=== PATIENT | female | born 1985 | race Caucasian/White ===

== ENCOUNTER 2016-06-07 10:36 | Emergency (ER) | payer MEDICAID ==
[~2016-06-07] VITALS: Ht 160 cm; Wt 60.0 kg
[~2016-06-07 10:36] MED LIST: PERM120L5 TP
[2016-06-07 10:45] VITALS: Ht 160 cm; Wt 60.0 kg
[2016-06-07] MEDS ORDERED: ACETAMINOPHEN 500 MG TAB PO STA (11:46)
--- NOTE | 2016-06-07 11:48 | ERD ---
ER Documentation Chief Complaint Date/Time DATE: 06/07/16 TIME: 11:46 Chief Complaint VAG BLEEDING 6WKS HPI This is a 30-year-old female who presents to the emergency department today complaining of spotting when she wiped this morning. Patient states she has some crampy lower abdominal pain. States that she has some back pain. States she is 6 weeks . Denies any fevers or chills, dysuria. She has not taken any medication for the pain. Denies any nausea or vomiting ROS All systems reviewed and are negative except as per history of present illness. Medications Home Meds Active Scripts Acetaminophen* (Tylophen*) 500 Mg Capsule, 1 CAP PO Q6H Y for PAIN AND OR ELEVATED TEMP, #30 CAP Prov:SHYAM MONTIEL PA-C 06/07/16 Permethrin (Permethrin) 118 Ml Liquid, 118 ML TP QHS, #2 EA Prov:TRISTAN LOPES 09/28/15 Reported Medications [None] No Conflict Check 07/21/10 Allergies Allergies: Coded Allergies: No Known Drug Allergy (Verified Allergy, Unknown, 09/28/15) PMhx/Soc History of Surgery: Yes () Anesthesia Reaction: No Hx Neurological Disorder: No Hx Respiratory Disorders: No Hx Cardiac Disorders: No Hx Psychiatric Problems: No Hx Miscellaneous Medical Probl: No Hx Alcohol Use: No Hx Substance Use: No Hx Tobacco Use: No Physical Exam Vitals Vital Signs Date Time Temp Pulse Resp B/P Pulse Ox O2 Delivery O2 Flow Rate FiO2 06/07/16 10:45 98.3 88 20 110/68 98 Physical Exam Const: No acute distress Head: Atraumatic Eyes: Normal Conjunctiva ENT: Normal External Ears, Nose and Mouth. Neck: Full range of motion..~ No meningismus. Resp: Clear to auscultation bilaterally Cardio: Regular rate and rhythm, no murmurs Abd: Soft, suprapubic tenderness non distended. Normal bowel sounds. No right lower quadrant pain. No left lower quadrant pain. Skin: No petechiae or rashes Back: Bilateral paraspinal tenderness. No midline tenderness. Neur: Awake and alert Psych: Normal Mood and Affect Result Diagram: 06/07/16 1256 Results 24 hrs Laboratory Tests Test 06/07/16 12:40 06/07/16 12:56 Urine Color LT. YELLOW Urine Clarity CLOUDY Urine pH 8.0 Urine Specific [place] 1.015 Urine Ketones NEGATIVE Urine Nitrite NEGATIVE Urine Bilirubin NEGATIVE Urine Urobilinogen 0.2 E.U./dL Urine Leukocyte Esterase NEGATIVE Urine Microscopic RBC 0-2/HPF Urine Microscopic WBC 0-2/HPF Urine Epithelial Cells FEW Urine Amorphous Phosphates MANY Urine Bacteria MODERATE Urine Hemoglobin 2+ Urine Glucose NEGATIVE% Urine Total Protein NEGATIVE White Blood Count 10.910^3/ul Red Blood Count 4.1210^6/ul Hemoglobin 13.3g/dl Hematocrit 38.0% Mean Corpuscular Volume 92.2fl Mean Corpuscular Hemoglobin 32.3pg Mean Corpuscular Hemoglobin Concent 35.0g/dl Red Cell Distribution Width 12.2% Platelet Count 10544^3/UL Mean Platelet Volume 11.8fl Neutrophils % 69.0% Lymphocytes % 23.1% Monocytes % 6.9% Eosinophils % 0.4% Basophils % 0.3% Nucleated Red Blood Cells % 0.0/100WBC Neutrophils # 7.510^3/ul Lymphocytes # 2.510^3/ul Monocytes # 0.810^3/ul Eosinophils # 0.010^3/ul Basophils # 0.010^3/ul Nucleated Red Blood Cells # 0.010^3/ul Beta HCG, Quantitative 30281.0mIU/ml Current Medications Medications (Trade) Dose Ordered Sig/Rei Route PRN Reason Start Time Stop Time Status Last Admin Dose Admin Acetaminophen (Tylenol Tab) 500 mg ONCE STAT PO 06/07/16 11:46 06/07/16 11:47 DC 06/07/16 12:16 IAGNOSTIC IMAGING REPORT Patient: GULSHAN LOUISE : 1985 Age: 30 Sex: F MR #: [id number] DOS: 06/07/16 1229 Ordering MD: SHYAM MONTIEL PA-C Location: [facility] Room/Bed: PROCEDURE: US OB. CLINICAL INDICATION: Vaginal bleeding TECHNIQUE: Transabdominal and transvaginal views of the pelvis are available for review. COMPARISON: No prior studies are available for comparison. FINDINGS: There is a single intrauterine gestation with the crown-rump length measuring 0.9 cm, corresponding to a gestational age of 6 weeks and 6 days. The heart rate is noted at 114 bpm. The ovaries are normal in size and echogenicity. Normal Doppler flow is identified in both ovaries. The right ovary measures 2.1 x 1.5 x 2.6 cm. The left ovary measures 2.7 x 1.4 x 1.6 cm. There is a 1.1 cm left paraovarian cyst. There is no free fluid. RPTAT: AA IMPRESSION: Single live intrauterine with an estimated gestational age of 6 weeks and 6 days, based on ultrasound measurements. ROSSANA based on ultrasound measurements is 01/25/17. 1.1 cm left paraovarian simple cyst. .Herminio Lovelace MD, MD Date Time Electronically viewed and signed by .Herminio Lovelace MD, MD on 06/07/2016 14: 26 .S/ CC: SHYAM MONTIEL PA-C Procedures/[facility] This a 30-year-old female who presents to the emergency department today complaining of spotting of blood when she wiped this morning. Patient indicated she was a proximal 6 weeks . I did obtain a urine test that was positive. Given this I did obtain a complete OB workup. Laboratory work shows a very mildly elevated white blood cell count. She is not anemic. Platelets are within normal limits. UA is negative for infection Rh status A + Positive Beta quant hCG 49889.0 Ultrasound shows a single live intrauterine with an estimated gestational age of 6 weeks and 6 days based on ultrasound measurements. ROSSANA is 01/25/2017. heart rate is 114 bpm. There is no free fluid. There is a 1.1 cm left paraovarian cyst. There is normal Doppler flow to both ovaries. Low suspicion for ovarian torsion, tubal or an abscess, ectopic Patient symptoms at this time is consistent with vaginal bleeding in early I explained to the patient that this may be an early normal , early failed . She is instructed to get a repeat beta quant in 48 hours. I have explained to the patient she may continue to have vaginal bleeding Patient was given Tylenol here in the emergency department. She will be given a prescription for Tylenol for home. At this time the patient is stable for discharge and outpatient management. Patient should follow up with their PCP in the next 1-2 days. They may return to the emergency department sooner for any persistent or worsening of symptoms. Patient understood and agreed with the plan. Departure Diagnosis: Primary Impression: Vaginal bleeding in patient at less than 20 weeks gestation Condition: SHYAM Monet PA-C Jun 07, 2016 11:48
[2016-06-07 13:02] LABS: ADD UMIC YES; URINE BILIRUBIN (Dip) NEGATIVE (NEGATIVE); URINE BLOOD (Dip) 2+ (NEGATIVE); URINE GLUCOSE (Dip) NEGATIVE (NEGATIVE); URINE KETONES (Dip) NEGATIVE (NEGATIVE); URINE LEUKOCYTE ESTERASE (Dip) NEGATIVE (NEGATIVE); URINE NITRITE (Dip) NEGATIVE (NEGATIVE); URINE TOTAL PROTEIN (Dip) NEGATIVE (NEGATIVE); URINE UROBILINOGEN (Dip) 0.2 E.U./dL (0.1-1.0)
[2016-06-07 13:05] LABS: ADD SCAN DIFF NO
[2016-06-07 13:14] LABS: BASOPHILS % 0.3 % (0.0-2.0); EOSINOPHILS % 0.4 % (0.0-7.0); HEMOGLOBIN 13.3 g/dl (12.0-16.0); LYMPHOCYTES # 2.5 10^3/ul (0.8-2.9); LYMPHOCYTES % 23.1 % (15.0-51.0); MEAN CORPUSCULAR HEMOGLOBIN 32.3 pg (29.0-33.0); MEAN CORPUSCULAR VOLUME 92.2 fl (82.0-101.0); MEAN PLATELET VOLUME 11.8 fl (7.4-10.4); MONOCYTE # 0.8 10^3/ul (0.3-0.9); MONOCYTES % 6.9 % (0.0-11.0); NEUTROPHIL # 7.5 10^3/ul (1.6-7.5); PLATELET COUNT 166 10^3/UL (140-415); RED BLOOD COUNT 4.12 10^6/ul (4.20-5.40); RED CELL DISTRIBUTION WIDTH 12.2 % (11.5-14.5); WHITE BLOOD COUNT 10.9 10^3/ul (4.8-10.8)
[2016-06-07 13:19] LABS: URINE RBCS 0-2 /HPF (0)
[2016-06-07 13:20] LABS: BACTERIA,URINE MODERATE; URINE COLOR LT. YELLOW (YELLOW)
--- NOTE | 2016-06-07 14:26 | RADRPT ---
PROCEDURE: US OB. CLINICAL INDICATION: Vaginal bleeding TECHNIQUE: Transabdominal and transvaginal views of the pelvis are available for review. COMPARISON: No prior studies are available for comparison. FINDINGS: There is a single intrauterine gestation with the crown-rump length measuring 0.9 cm, corresponding to a gestational age of 6 weeks and 6 days. The heart rate is noted at 114 bpm. The ovaries are normal in size and echogenicity. Normal Doppler flow is identified in both ovaries. The right ovary measures 2.1 x 1.5 x 2.6 cm. The left ovary measures 2.7 x 1.4 x 1.6 cm. There is a 1.1 cm left paraovarian cyst. There is no free fluid. RPTAT: AA IMPRESSION: Single live intrauterine with an estimated gestational age of 6 weeks and 6 days, based on ultrasound measurements. ROSSANA based on ultrasound measurements is 01/25/17. 1.1 cm left paraovarian simple cyst. .Herminio Lovelace MD, MD Date Time Electronically viewed and signed by .Herminio Lovelace MD, on 06/07/2016 14:26 .S/
[2016-06-07] MEDS ORDERED: ACET500C5 PO (14:35)
[2016-06-07 14:45] VITALS: BP 108/69; PULSE 72; RESP 18; TEMP 98.8
== END 2016-06-07 14:45 | disposition home or self-care (01) ==
LOC: FTE 10:36
DX: O20.9 Hemorrhage in early pregnancy, unspecified (principal); Z3A.01 Less than 8 weeks gestation of pregnancy
CPT/HCPCS: 36415; 76801; 76817; 81001; 84702; 85025; 86900; 86901; Z7502; Z7610; 81003

== ENCOUNTER 2016-06-20 12:36 | Emergency (ER) | payer MEDICAID ==
[~2016-06-20] VITALS: Ht 152.4 cm; Wt 60.0 kg
[~2016-06-20 12:36] MED LIST changes: +ACET500C5 PO
[2016-06-20 12:49] VITALS: Ht 152.4 cm; Wt 60.0 kg
[2016-06-20 14:57] LABS: ADD SCAN DIFF NO
[2016-06-20] MEDS ORDERED: ACETAMINOPHEN 325 MG TAB PO ONE (15:00)
[2016-06-20 15:07] LABS: BASOPHILS % 0.1 % (0.0-2.0); EOSINOPHILS % 0.4 % (0.0-7.0); HEMATOCRIT 36.8 % (37.0-47.0); HEMOGLOBIN 13.1 g/dl (12.0-16.0); LYMPHOCYTES # 2.2 10^3/ul (0.8-2.9); LYMPHOCYTES % 20.7 % (15.0-51.0); MEAN CORPUSCULAR HEMOGLOBIN 32.5 pg (29.0-33.0); MEAN CORPUSCULAR HGB CONC 35.6 g/dl (32.0-37.0); MEAN CORPUSCULAR VOLUME 91.3 fl (82.0-101.0); MEAN PLATELET VOLUME 11.2 fl (7.4-10.4); MONOCYTE # 0.7 10^3/ul (0.3-0.9); MONOCYTES % 6.5 % (0.0-11.0); NEUTROPHIL # 7.5 10^3/ul (1.6-7.5); PLATELET COUNT 179 10^3/UL (140-415); RED BLOOD COUNT 4.03 10^6/ul (4.20-5.40); WHITE BLOOD COUNT 10.4 10^3/ul (4.8-10.8)
[2016-06-20 15:14] LABS: ADD UMIC YES; URINE BILIRUBIN (Dip) NEGATIVE (NEGATIVE); URINE BLOOD (Dip) 2+ (NEGATIVE); URINE COLOR YELLOW (YELLOW); URINE GLUCOSE (Dip) NEGATIVE (NEGATIVE); URINE KETONES (Dip) NEGATIVE (NEGATIVE); URINE LEUKOCYTE ESTERASE (Dip) NEGATIVE (NEGATIVE); URINE NITRITE (Dip) NEGATIVE (NEGATIVE); URINE TOTAL PROTEIN (Dip) NEGATIVE (NEGATIVE); URINE UROBILINOGEN (Dip) 0.2 E.U./dL (0.1-1.0)
--- NOTE | 2016-06-20 15:19 | RADRPT ---
PROCEDURE: US OB. CLINICAL INDICATION: Vaginal bleeding TECHNIQUE: Transabdominal views of the pelvis are available for review. COMPARISON: 06/07/16 FINDINGS: There is a single intrauterine gestation with the crown-rump length measuring 1.8 cm and the gestat ional sac measures 3.9 cm, corresponding to a gestational age of 8 weeks and 6 days. The heart rate is noted at 165 bpm. The ovaries are not visualized. There is no free fluid. RPTAT: AA IMPRESSION: Single live intrauterine with an estimated gestational age of 8 weeks and 6 days, based on ultrasound measurements. ROSSANA based on ultrasound measurements is 01/24/17. .Herminio Lovelace MD, MD Date Time Electronically viewed and signed by .Herminio Lovelace MD, on 06/20/2016 15:18 .S/
[2016-06-20 15:26] LABS: BACTERIA,URINE FEW; MUCUS,URINE MODERATE; SQUAMOUS EPITHELIAL CELL,UR MODERATE
--- NOTE | 2016-06-20 16:21 | ERD ---
ER Documentation Chief Complaint Date/Time DATE: 06/20/16 TIME: 16:20 Chief Complaint VAGINAL BLEEDING X 1 DAY, 7 WEEKS , BACK PAIN HPI This 30-year-old female is approximately 7 weeks by dates. She says some vaginal bleeding suggested with possible small clots. She denies any current lower abdominal pain. She has a dysuria, fevers or vomiting. ROS All systems reviewed and are negative except as per history of present illness. Medications Home Meds Active Scripts Acetaminophen* (Tylophen*) 500 Mg Capsule, 1 CAP PO Q6H Y for PAIN AND OR ELEVATED TEMP, #30 CAP Prov:SHYAM MONTIEL PA-C 06/07/16 Permethrin (Permethrin) 118 Ml Liquid, 118 ML TP QHS, #2 EA Prov:TRISTAN LOPES 09/28/15 Reported Medications [None] No Conflict Check 07/21/10 Allergies Allergies: Coded Allergies: No Known Drug Allergy (Verified Allergy, Unknown, 09/28/15) PMhx/Soc History of Surgery: Yes () Anesthesia Reaction: No Hx Neurological Disorder: No Hx Respiratory Disorders: No Hx Cardiac Disorders: No Hx Psychiatric Problems: No Hx Miscellaneous Medical Probl: No Hx Alcohol Use: No Hx Substance Use: No Hx Tobacco Use: No Physical Exam Vitals Vital Signs Date Time Temp Pulse Resp B/P Pulse Ox O2 Delivery O2 Flow Rate FiO2 06/20/16 12:49 98.5 87 18 107/65 97 Physical Exam Const: [] Head: Atraumatic Eyes: Normal Conjunctiva ENT: Normal External Ears, Nose and Mouth. Neck: Full range of motion..~ No meningismus. Resp: Clear to auscultation bilaterally Cardio: Regular rate and rhythm, no murmurs Abd: Soft, non tender, non distended. Normal bowel sounds Skin: No petechiae or rashes Back: No midline or flank tenderness Ext: No cyanosis, or edema Neur: Awake and alert Psych: Normal Mood and Affect Result Diagram: 06/20/16 1450 Results 24 hrs Laboratory Tests Test 06/20/16 14:44 06/20/16 14:50 Urine Color YELLOW Urine Clarity CLEAR Urine pH 6.0 Urine Specific [place] 1.020 Urine Ketones NEGATIVE Urine Nitrite NEGATIVE Urine Bilirubin NEGATIVE Urine Urobilinogen 0.2 E.U./dL Urine Leukocyte Esterase NEGATIVE Urine Microscopic RBC 2-5/HPF Urine Microscopic WBC 5-10/HPF Urine Squamous Epithelial Cells MODERATE Urine Bacteria FEW Urine Mucus MODERATE Urine Hemoglobin 2+ Urine Glucose NEGATIVE% Urine Total Protein NEGATIVE White Blood Count 10.410^3/ul Red Blood Count 4.0310^6/ul Hemoglobin 13.1g/dl Hematocrit 36.8% Mean Corpuscular Volume 91.3fl Mean Corpuscular Hemoglobin 32.5pg Mean Corpuscular Hemoglobin Concent 35.6g/dl Red Cell Distribution Width 12.0% Platelet Count 97066^3/UL Mean Platelet Volume 11.2fl Neutrophils % 72.0% Lymphocytes % 20.7% Monocytes % 6.5% Eosinophils % 0.4% Basophils % 0.1% Nucleated Red Blood Cells % 0.0/100WBC Neutrophils # 7.510^3/ul Lymphocytes # 2.210^3/ul Monocytes # 0.710^3/ul Eosinophils # 0.010^3/ul Basophils # 0.010^3/ul Nucleated Red Blood Cells # 0.010^3/ul Beta HCG, Quantitative 611786.0mIU/ml Current Medications Medications (Trade) Dose Ordered Sig/Rei Route PRN Reason Start Time Stop Time Status Last Admin Dose Admin Acetaminophen (Tylenol Tab) 650 mg ONCE ONCE PO 06/20/16 15:00 06/20/16 15:01 DC 06/20/16 15:26 Procedures/MDM Patient is Rh+. CBC is normal. Quantitative hCG is 187,000. Pelvic ultrasound shows a live intrauterine approximately 8 weeks 6 days. There is no other acute findings noted. Patient presents with vaginal bleeding first trimester of uncertain etiology. There is no evidence to suggest ectopic , acute abdomen, UTI or additional complications of . She will discharged home with further observation instruction to follow-up with OB or primary doctor this week. She will return for worsening pain, bleeding, fevers, new worsening symptoms. The patient was stable with no new complaints during the ER course. Clinically, there is no current evidence to suggest meningitis, sepsis, acute abdomen, pneumonia, acute coronary syndrome, pulmonary embolism, or any other emergent condition appearing to require further evaluation or hospitalization. The patient should certainly return for any new or worsening symptoms per the aftercare instructions. They should otherwise follow-up with her primary care doctor for reevaluation this week. Departure Diagnosis: Primary Impression: Vaginal bleeding in patient at less than 20 weeks ges... Condition: Stable Patient Instructions: Bleeding During Early Additional Instructions: Examines normal hoy. Cheque otro vez con taylor doctor primario en el proximo hutton or regresa para mas o nueva simptomas. CHICHI ROCA MD Jun 20, 2016 16:21
[2016-06-20 16:32] VITALS: BP 114/69; PULSE 84; RESP 16; TEMP 98
== END 2016-06-20 16:33 | disposition home or self-care (01) ==
LOC: FTE 12:36
DX: O20.9 Hemorrhage in early pregnancy, unspecified (principal); Z3A.08 8 weeks gestation of pregnancy
CPT/HCPCS: 36415; 76801; 81001; 81003; 84702; 85025; 86900; 86901; Z7502; Z7610

== ENCOUNTER 2016-10-07 20:17 | Emergency (ER) | payer MEDICAID ==
[~2016-10-07] VITALS: Ht 157.5 cm; Wt 65.0 kg
[2016-10-07 20:18] VITALS: Ht 157.5 cm; Wt 65.0 kg
[2016-10-07 21:59] VITALS: BP 112/71; PULSE 72; RESP 18; TEMP 98.8
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
--- NOTE | 2016-10-07 22:26 | RADRPT ---
PROCEDURE: Obstetrical ultrasound, limited. CLINICAL INDICATION: Pelvic pain. TECHNIQUE: Multiple sonographic images of the pelvis were obtained using transabdominal technique . Images were obtained with morris scale and color Doppler. The images were reviewed on a PACS works tation. COMPARISON: 06/20/2016. FINDINGS: There is a single living intrauterine gestation with the fetus in a breech presentation. hear t tones of 138 beats per minute are identified. The placenta is anterior in location, grade 0. The re is normal amniotic fluid volume with the maximum vertical pocket measuring 5.3 cm. The cervix is open measuring 0.8 cm. There is no evidence of placenta previa or abruption. Measurements were made in order to determine age. The results are as follows: BPD =5.70 cm HC =20.74 cm AC =19.66 cm FL =4.14 cm. Estimated gestational age of approximately 23 weeks and 4 days. The estimated date of delivery is 01/30/2017. The EFW = 631 +/- 95 grams. Estimated weight percentage equals 21.6%. IMPRESSION: Single viable intrauterine gestation of approximately 23 weeks and 4 days, with an ultrasound ROSSANA of 01/30/2017. Open cervix measuring 0.8 cm. .Alejandro Egan MD, MD Date Time Electronically viewed and signed by .Alejandro Egan MD, MD on 10/07/2016 22:26 .T/
[2016-10-07] MEDS ORDERED: FERR134T PO (23:06)
[2016-10-07] MEDS ORDERED: FOLI0.8C PO (23:06)
[2016-10-07] MEDS ORDERED: CALC600T5 PO (23:06)
[2016-10-07] MEDS ORDERED: PRENAT PO (23:06)
== END 2016-10-07 22:00 | disposition home or self-care (01) ==
LOC: E/R 20:17
DX: O9A.212 Injury, poisoning and certain other consequences of external causes complicating pregnancy, second trimester (principal); S39.81XA Other specified injuries of abdomen, initial encounter; Y08.89XA Assault by other specified means, initial encounter; Z3A.23 23 weeks gestation of pregnancy
CPT/HCPCS: 76805

== ENCOUNTER 2016-10-07 22:07 | Inpatient (IN) | payer MEDICAID ==
[~2016-10-07] VITALS: Ht 142.2 cm; Wt 59.5 kg
[2016-10-07 22:51] VITALS: Ht 142.2 cm; Wt 59.5 kg
[2016-10-07 22:52] VITALS: BP 116/65; PULSE 86; RESP 18
[2016-10-07] MEDS ORDERED: CALC600T5 PO (23:06)
[2016-10-07] MEDS ORDERED: FERR134T PO (23:06)
[2016-10-07] MEDS ORDERED: PRENAT PO (23:06)
[2016-10-07] MEDS ORDERED: FOLI0.8C PO (23:06)
[2016-10-08 00:50] LABS: BASOPHILS % 0.1 % (0.0-2.0); EOSINOPHILS % 0.2 % (0.0-7.0); HEMATOCRIT 32.2 % (37.0-47.0); HEMOGLOBIN 11.8 g/dl (12.0-16.0); LYMPHOCYTES # 1.8 10^3/ul (0.8-2.9); LYMPHOCYTES % 14.9 % (15.0-51.0); MEAN CORPUSCULAR HEMOGLOBIN 33.2 pg (29.0-33.0); MEAN CORPUSCULAR HGB CONC 36.6 g/dl (32.0-37.0); MEAN CORPUSCULAR VOLUME 90.7 fl (82.0-101.0); MEAN PLATELET VOLUME 11.4 fl (7.4-10.4); MONOCYTE # 0.6 10^3/ul (0.3-0.9); MONOCYTES % 4.6 % (0.0-11.0); NEUTROPHIL # 9.8 10^3/ul (1.6-7.5); NEUTROPHILS % 79.7 % (39.0-77.0); PLATELET COUNT 146 10^3/UL (140-415); RED BLOOD COUNT 3.55 10^6/ul (4.20-5.40); RED CELL DISTRIBUTION WIDTH 12.2 % (11.5-14.5); WHITE BLOOD COUNT 12.2 10^3/ul (4.8-10.8)
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
[2016-10-08] MEDS ORDERED: AL HYDROX/MG HYDROX/SIMETH 30 ML CUP PO PRN (01:30)
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
[2016-10-08] MEDS: BETAMET NA PHOS/AC(6 MG/ML) 5ML INJ IM SCH (03:15)
[2016-10-08 03:46] LABS: ADD UMIC NO; UR ASCORBIC ACID NEGATIVE (NEGATIVE); UR BILIRUBIN (Dip) NEGATIVE (NEGATIVE); UR BLOOD (Dip) NEGATIVE (NEGATIVE); UR CLARITY CLEAR (CLEAR); UR COLOR YELLOW (YELLOW); UR GLUCOSE (Dip) NEGATIVE (NEGATIVE); UR KETONES (Dip) 1+ mg/dL (NEGATIVE); UR LEUKOCYTE ESTERASE (Dip) NEGATIVE Leu/ul (NEGATIVE); UR NITRITE (Dip) NEGATIVE (NEGATIVE); UR SPECIFIC GRAVITY (Dip) 1.018 (1.003-1.030); UR TOTAL PROTEIN (Dip) NEGATIVE (NEGATIVE); UR UROBILINOGEN (Dip) NEGATIVE (NEGATIVE)
[2016-10-08] MEDS: FOLIC ACID 0.4 MG TAB PO SCH (08:57)
[2016-10-08] MEDS: FERROUS SULFATE (EC) 325 MG TAB PO SCH (08:57)
[2016-10-08] MEDS: CALCIUM/VITAMIN D (250/125) TAB PO SCH (08:57)
[2016-10-08] MEDS: PRENATAL VITAMIN PO SCH (08:57)
--- NOTE | 2016-10-08 10:13 | RADRPT ---
PROCEDURE: Limited obstetric ultrasound CLINICAL INDICATION: Pain TECHNIQUE: Multiple transverse and longitudinal grayscale images of the pelvis were obtained sena sabdominally and transvaginally.. COMPARISON: 10/07/2016 FINDINGS: The cervix has a length of 0.7 cm. There is evidence of funneling with the internal os dilated to 1. 4 cm. There is layering debris between the internal os and external os. There is a single viable intrauterine gestation. Cardiac activity is present with 156 beats per min saxman. There is a vertex presentation. The placenta is anterior. There is no evidence for an abruption or placenta previa. RPTAT: AA IMPRESSION: Cervix length measures 0.7 cm. Evidence of funneling with dilatation of the internal os. Echogenic debris noted between the internal and external os. .Herminio Lovelaec MD, MD Date Time Electronically viewed and signed by .Herminio Lovelace MD, MD on 10/08/2016 10:12 .S/
[2016-10-08 10:20] LABS: BARBITURATES NEGATIVE (NEGATIVE); BENZODIAZEPINES NEGATIVE (NEGATIVE); CANNABINOIDS NEGATIVE (NEGATIVE); COCAINE NEGATIVE (NEGATIVE); OPIATES NEGATIVE (NEGATIVE)
[2016-10-08] MEDS: ACETAMINOPHEN 325 MG TAB PO PRN (14:04)
[2016-10-08] MEDS: PROGESTERONE 100 MG CAP VAG SCH (21:19)
[2016-10-09] MEDS: BETAMET NA PHOS/AC(6 MG/ML) 5ML INJ IM SCH (03:22)
[2016-10-09] MEDS: PRENATAL VITAMIN PO SCH (08:34)
[2016-10-09] MEDS: FERROUS SULFATE (EC) 325 MG TAB PO SCH (08:34)
[2016-10-09] MEDS: FOLIC ACID 0.4 MG TAB PO SCH (08:34)
[2016-10-09] MEDS: CALCIUM/VITAMIN D (250/125) TAB PO SCH (08:34)
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
[2016-10-09] MEDS: PROGESTERONE 100 MG CAP VAG SCH (21:07)
[2016-10-10] MEDS: FOLIC ACID 0.4 MG TAB PO SCH (08:56)
[2016-10-10] MEDS: FERROUS SULFATE (EC) 325 MG TAB PO SCH (08:56)
[2016-10-10] MEDS: PRENATAL VITAMIN PO SCH (08:56)
[2016-10-10] MEDS: CALCIUM/VITAMIN D (250/125) TAB PO SCH (08:56)
--- NOTE | 2016-10-10 13:07 | QN ---
Documentation Comment 24+wks GA with short cervix currently not sal +FM No VB No LOF No CTXs NST reassuring [place] No CTXs --->continue the orders as Per perinatalogist --->close OBservation ANNE VILLEGAS M.D. Oct 10, 2016 13:07
[2016-10-10] MEDS: PROGESTERONE 100 MG CAP VAG SCH (20:52)
[2016-10-10] MEDS ORDERED: DOCUSATE SODIUM 100 MG CAP PO ONE (21:00)
[2016-10-11] MEDS: CALCIUM/VITAMIN D (250/125) TAB PO SCH (09:09)
[2016-10-11] MEDS: FERROUS SULFATE (EC) 325 MG TAB PO SCH (09:09)
[2016-10-11] MEDS: FOLIC ACID 0.4 MG TAB PO SCH (09:09)
[2016-10-11] MEDS: PRENATAL VITAMIN PO SCH (09:10)
[2016-10-11] MEDS: PROGESTERONE 100 MG CAP VAG SCH (20:54)
[2016-10-12] MEDS: FERROUS SULFATE (EC) 325 MG TAB PO SCH (09:01)
[2016-10-12] MEDS: PRENATAL VITAMIN PO SCH (09:02)
[2016-10-12] MEDS: FOLIC ACID 0.4 MG TAB PO SCH (09:02)
[2016-10-12] MEDS: CALCIUM/VITAMIN D (250/125) TAB PO SCH (09:04)
--- NOTE | 2016-10-12 12:40 | QN ---
Documentation Comment 24+wks GA with short cervix currently not sal +FM No VB No LOF No CTXs NST reassuring [place] No CTXs --->continue the orders as Per perinatalogist --->close OBservation ANNE VILLEGAS M.D. Oct 12, 2016 12:40
--- NOTE | 2016-10-12 12:40 | QN ---
Documentation Comment 10/11/16 Late Entry: 24+wks GA with short cervix currently not sal +FM No VB No LOF No CTXs NST reassuring [place] No CTXs --->continue the orders as Per perinatalogist --->close OBservation ANNE VILLEGAS M.D. Oct 12, 2016 12:40
[2016-10-12] MEDS: ACETAMINOPHEN 325 MG TAB PO PRN (17:23)
[2016-10-12] MEDS: PROGESTERONE 100 MG CAP VAG SCH (21:00)
[2016-10-13] MEDS: FERROUS SULFATE (EC) 325 MG TAB PO SCH (09:13)
[2016-10-13] MEDS: CALCIUM/VITAMIN D (250/125) TAB PO SCH (09:14)
[2016-10-13] MEDS: FOLIC ACID 0.4 MG TAB PO SCH (09:14)
[2016-10-13] MEDS: PRENATAL VITAMIN PO SCH (09:14)
--- NOTE | 2016-10-13 12:58 | QN ---
Documentation Comment 24+wks GA with short cervix currently not sal +FM No VB No LOF No CTXs NST reassuring [place] No CTXs --->continue the orders as Per perinatalogist --->close OBservation --->CXL --->ANNE THACKER M.D. Oct 13, 2016 12:58
[2016-10-13 15:22] LABS: ADD UMIC YES; UR ASCORBIC ACID 40 mg/dL (NEGATIVE); UR BACTERIA FEW /HPF (NONE SEEN); UR BILIRUBIN (Dip) NEGATIVE (NEGATIVE); UR BLOOD (Dip) NEGATIVE (NEGATIVE); UR CLARITY SLIGHTLY CLOUDY (CLEAR); UR COLOR YELLOW (YELLOW); UR GLUCOSE (Dip) 1+ mg/dL (NEGATIVE); UR KETONES (Dip) NEGATIVE (NEGATIVE); UR LEUKOCYTE ESTERASE (Dip) 2+ Leu/ul (NEGATIVE); UR NITRITE (Dip) NEGATIVE (NEGATIVE); UR RBC 1 /HPF (0-5); UR SPECIFIC GRAVITY (Dip) 1.011 (1.003-1.030); UR SQUAMOUS EPITHELIAL CELL FEW /HPF (FEW); UR TOTAL PROTEIN (Dip) NEGATIVE (NEGATIVE); UR UROBILINOGEN (Dip) NEGATIVE (NEGATIVE)
--- NOTE | 2016-10-13 16:44 | RADRPT ---
PROCEDURE: Ultrasound OB cervical length CLINICAL INDICATION: Pelvic pain. TECHNIQUE: Sonographic evaluation to assess the cervical length was performed. Transabdominal and transvaginal imaging of the gravid uterus was performed. COMPARISON: Exam dated 10/08/2016. FINDINGS: The cervical length equals approximately 0.4 cm. There is funneling with echogenic debris within th e endocervical canal. IMPRESSION: 1. Cervical length equals 0.4 cm with funneling and echogenic debris within the endocervical canal. RPTAT: HLBP .Memo Villalobos MD, Date Time Electronically viewed and signed by .Memo Villalobos MD, MD on 10/13/2016 16:44 .P/
[2016-10-13] MEDS ORDERED: CEFAZOLIN 2 GM/50 ML (PMX) 50 ML IVPB ONE (20:00)
[2016-10-13] MEDS ORDERED: LACTATED RINGER'S 500 ML IV ONE (20:30)
[2016-10-13] MEDS: PROGESTERONE 100 MG CAP VAG SCH (21:10)
[2016-10-14] MEDS: FERROUS SULFATE (EC) 325 MG TAB PO SCH (08:50)
[2016-10-14] MEDS: FOLIC ACID 0.4 MG TAB PO SCH (08:51)
[2016-10-14] MEDS: PRENATAL VITAMIN PO SCH (08:51)
[2016-10-14] MEDS: CALCIUM/VITAMIN D (250/125) TAB PO SCH (08:51)
--- NOTE | 2016-10-14 11:23 | QN ---
Documentation Comment 24+wks GA with short cervix (0.4mm) +FM No VB No LOF No CTXs NST reassuring [place] No CTXs --->continue the orders as Per perinatalogist --->procardia 10mg q6hr --->venodyne sebastián while in bed ANNE VILLEGAS M.D. Oct 14, 2016 11:23
[2016-10-14] MEDS: NIFEdipine 10 MG CAP PO SCH ×2 (11:59→17:51)
--- NOTE | 2016-10-14 15:11 | RADRPT ---
PROCEDURE: OB ultrasound (limited) CLINICAL INDICATION: Pain, assess fluid volume TECHNIQUE: Limited transabdominal sonographic evaluation of the gravid uterus was performed. COMPARISON: Ultrasound, 10/13/2016 FINDINGS: Single intrauterine gestation is identified in cephalic position. Placenta is anterior without evid ence for abruption or previa. heart rate is 148 bpm. DIANA measures 14.7 cm, within normal baker its. IMPRESSION: 1. Single live intrauterine gestation in cephalic position. 2. DIANA measures 14.7 cm, within normal limits. RPTAT: PP .Shoaib Almonte MD, Date Time Electronically viewed and signed by .Shoaib Almonte MD, on 10/14/2016 15:11 .R/
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
[2016-10-14] MEDS: PROGESTERONE 100 MG CAP VAG SCH (21:22)
[2016-10-14] MEDS: ACETAMINOPHEN 325 MG TAB PO PRN (22:30)
[2016-10-15] MEDS: NIFEdipine 10 MG CAP PO SCH ×5 (00:20→23:54)
[2016-10-15] MEDS: CALCIUM/VITAMIN D (250/125) TAB PO SCH (08:46)
[2016-10-15] MEDS: FOLIC ACID 0.4 MG TAB PO SCH (08:46)
[2016-10-15] MEDS: PRENATAL VITAMIN PO SCH (08:46)
[2016-10-15] MEDS: FERROUS SULFATE (EC) 325 MG TAB PO SCH (08:46)
[2016-10-15] MEDS: PROGESTERONE 100 MG CAP VAG SCH (21:02)
--- NOTE | 2016-10-15 21:48 | QN ---
Documentation Comment 25+wks GA with short cervix (0.4mm) +FM No VB No LOF No CTXs NST reassuring [place] No CTXs --->continue the orders as Per perinatalogist --->jessica lowery while in bed ANNE VILLEGAS M.D. Oct 15, 2016 21:48
[2016-10-16] MEDS: NIFEdipine 10 MG CAP PO SCH ×3 (06:19→17:39)
[2016-10-16] MEDS: CALCIUM/VITAMIN D (250/125) TAB PO SCH (08:49)
[2016-10-16] MEDS: FOLIC ACID 0.4 MG TAB PO SCH (08:49)
[2016-10-16] MEDS: FERROUS SULFATE (EC) 325 MG TAB PO SCH (08:49)
[2016-10-16] MEDS: PRENATAL VITAMIN PO SCH (08:49)
[2016-10-16] MEDS: PROGESTERONE 100 MG CAP VAG SCH (21:19)
[2016-10-17] MEDS: NIFEdipine 10 MG CAP PO SCH ×5 (00:01→23:59)
[2016-10-17] MEDS: CALCIUM/VITAMIN D (250/125) TAB PO SCH (08:52)
[2016-10-17] MEDS: PRENATAL VITAMIN PO SCH (08:52)
[2016-10-17] MEDS: FOLIC ACID 0.4 MG TAB PO SCH (08:52)
[2016-10-17] MEDS: FERROUS SULFATE (EC) 325 MG TAB PO SCH (08:52)
--- NOTE | 2016-10-17 16:07 | QN ---
Documentation Comment 25+wks GA with short cervix (0.4mm) +FM No VB No LOF No CTXs NST reassuring [place] No CTXs --->continue the orders as Per perinatalogist --->jessica lowery while in bed ANNE VILLEGAS M.D. Oct 17, 2016 16:07
--- NOTE | 2016-10-17 16:07 | QN ---
Documentation Comment 25+wks GA with short cervix (0.4mm) +FM No VB No LOF No CTXs NST reassuring [place] No CTXs --->continue the orders as Per perinatalogist --->jessica lowery while in bed ANNE VILLEGAS M.D. Oct 17, 2016 16:07
[2016-10-17] MEDS: PROGESTERONE 100 MG CAP VAG SCH (21:24)
[2016-10-18] MEDS: NIFEdipine 10 MG CAP PO SCH ×3 (06:02→17:53)
[2016-10-18] MEDS: CALCIUM/VITAMIN D (250/125) TAB PO SCH (09:00)
[2016-10-18] MEDS: PRENATAL VITAMIN PO SCH (09:00)
[2016-10-18] MEDS: FOLIC ACID 0.4 MG TAB PO SCH (09:00)
[2016-10-18] MEDS: FERROUS SULFATE (EC) 325 MG TAB PO SCH (09:00)
[2016-10-18] MEDS: PROGESTERONE 100 MG CAP VAG SCH (21:30)
[2016-10-19] MEDS: NIFEdipine 10 MG CAP PO SCH ×4 (00:07→18:12)
[2016-10-19] MEDS: CALCIUM/VITAMIN D (250/125) TAB PO SCH (09:30)
[2016-10-19] MEDS: FERROUS SULFATE (EC) 325 MG TAB PO SCH (09:30)
[2016-10-19] MEDS: PRENATAL VITAMIN PO SCH (09:30)
[2016-10-19] MEDS: FOLIC ACID 0.4 MG TAB PO SCH (09:30)
--- NOTE | 2016-10-19 09:57 | QN ---
Documentation Comment 25+wks GA with short cervix (0.4mm) +FM No VB No LOF No CTXs NST reassuring [place] No CTXs --->continue the orders as Per perinatalogist --->jessica lowery while in bed ANNE VILLEGAS M.D. Oct 19, 2016 09:57
--- NOTE | 2016-10-19 09:57 | QN ---
Documentation Comment Late Entry Note 10/18/16 25+wks GA with short cervix (0.4mm) +FM No VB No LOF No CTXs NST reassuring [place] No CTXs --->continue the orders as Per perinatalogist --->jessica lowery while in bed ANNE VILLEGAS M.D. Oct 19, 2016 09:57
[2016-10-19] MEDS: PROGESTERONE 100 MG CAP VAG SCH (20:58)
[2016-10-20] MEDS: NIFEdipine 10 MG CAP PO SCH ×4 (00:05→17:35)
[2016-10-20] MEDS: FERROUS SULFATE (EC) 325 MG TAB PO SCH (09:00)
[2016-10-20] MEDS: CALCIUM/VITAMIN D (250/125) TAB PO SCH (09:00)
[2016-10-20] MEDS: FOLIC ACID 0.4 MG TAB PO SCH (09:00)
[2016-10-20] MEDS: PRENATAL VITAMIN PO SCH (09:00)
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
[2016-10-20] MEDS: PROGESTERONE 100 MG CAP VAG SCH (21:03)
[2016-10-21] MEDS: NIFEdipine 10 MG CAP PO SCH ×4 (00:13→18:07)
[2016-10-21] MEDS: CALCIUM/VITAMIN D (250/125) TAB PO SCH (09:11)
[2016-10-21] MEDS: FERROUS SULFATE (EC) 325 MG TAB PO SCH (09:11)
[2016-10-21] MEDS: FOLIC ACID 0.4 MG TAB PO SCH (09:11)
[2016-10-21] MEDS: PRENATAL VITAMIN PO SCH (09:11)
[2016-10-21] MEDS: PROGESTERONE 100 MG CAP VAG SCH (21:02)
[2016-10-22] MEDS: NIFEdipine 10 MG CAP PO SCH ×4 (00:04→17:53)
[2016-10-22] MEDS: PRENATAL VITAMIN PO SCH (09:31)
[2016-10-22] MEDS: FERROUS SULFATE (EC) 325 MG TAB PO SCH (09:31)
[2016-10-22] MEDS: FOLIC ACID 0.4 MG TAB PO SCH (09:31)
[2016-10-22] MEDS: CALCIUM/VITAMIN D (250/125) TAB PO SCH (09:31)
[2016-10-22] MEDS: PROGESTERONE 100 MG CAP VAG SCH (21:06)
[2016-10-23] MEDS: NIFEdipine 10 MG CAP PO SCH ×4 (00:05→17:59)
[2016-10-23] MEDS: CALCIUM/VITAMIN D (250/125) TAB PO SCH (08:55)
[2016-10-23] MEDS: PRENATAL VITAMIN PO SCH (08:56)
[2016-10-23] MEDS: FOLIC ACID 0.4 MG TAB PO SCH (08:56)
[2016-10-23] MEDS: FERROUS SULFATE (EC) 325 MG TAB PO SCH (08:56)
[2016-10-23] MEDS ORDERED: LACTATED RINGER'S 1,000 ML IV ONE (17:30)
--- NOTE | 2016-10-23 19:49 | QN ---
Documentation Comment 10/22/16 Late Entry NOte: 25+wks GA with short cervix (0.4mm) +FM No VB No LOF No CTXs NST reassuring [place] No CTXs --->continue the orders as Per perinatalogist --->jessica lowery while in bed ANNE VILLEGAS M.D. Oct 23, 2016 19:49
--- NOTE | 2016-10-23 19:49 | QN ---
Documentation Comment 10/21/16 Late Entry NOte: 25+wks GA with short cervix (0.4mm) +FM No VB No LOF No CTXs NST reassuring [place] No CTXs --->continue the orders as Per perinatalogist --->jessica lowery while in bed ANNE VILLEGAS M.D. Oct 23, 2016 19:49
--- NOTE | 2016-10-23 19:50 | QN ---
Documentation Comment 10/23/16 25+wks GA with short cervix +FM No VB No LOF No CTXs NST reassuring [place] No CTXs --->continue the orders as Per perinatalogist --->jessica lowery while in bed ANNE VILLEGAS M.D. Oct 23, 2016 19:50
[2016-10-23] MEDS: PROGESTERONE 100 MG CAP VAG SCH (21:01)
[2016-10-24] MEDS: NIFEdipine 10 MG CAP PO SCH (00:04)
[2016-10-24] MEDS: LACTATED RINGER'S 1,000 ML IV SCH ×3 (04:17→23:42)
[2016-10-24] MEDS: MAGNESIUM SULFATE 20 GM/500 ML 500 ML IV SCH ×2 (04:20→13:08)
[2016-10-24] MEDS: FOLIC ACID 0.4 MG TAB PO SCH (08:52)
[2016-10-24] MEDS: PRENATAL VITAMIN PO SCH (08:52)
[2016-10-24] MEDS: CALCIUM/VITAMIN D (250/125) TAB PO SCH (08:52)
[2016-10-24] MEDS: FERROUS SULFATE (EC) 325 MG TAB PO SCH (08:52)
[2016-10-24] MEDS ORDERED: NIFEdipine 10 MG CAP PO SCH (18:00)
[2016-10-24] MEDS: PROGESTERONE 100 MG CAP VAG SCH (21:19)
[2016-10-24] MEDS ORDERED: LACTATED RINGER'S 500 ML IV ONE (21:30)
[2016-10-24] MEDS ORDERED: NIFEdipine 10 MG CAP PO PRN (22:00)
[2016-10-25] MEDS ORDERED: NIFEdipine 10 MG CAP PO SCH
[2016-10-25] MEDS ORDERED: MAGNESIUM SULFATE 20 GM/500 ML 500 ML IV SCH (00:30)
[2016-10-25] MEDS ORDERED: BUTORPHANOL 2 MG INJ IV ONE (04:30)
[2016-10-25] MEDS ORDERED: ACYCLOVIR IVPB STA (07:47)
[2016-10-25] MEDS ORDERED: SOD CHLORIDE 0.9% IVPB STA (07:47)
--- NOTE | 2016-10-25 07:54 | QN ---
Documentation Comment Late Entry Note 10/24/16 25+wks GA with short cervix +FM No VB No LOF No CTXs NST reassuring [place] No CTXs --->continue the orders as Per perinatalogist --->jessica lowery while in bed ANNE VILLEGAS M.D. Oct 25, 2016 07:54
--- NOTE | 2016-10-25 07:55 | RADRPT ---
PROCEDURE: Obstetrical ultrasound CLINICAL INDICATION: LABOR TECHNIQUE: Multiple sonographic images of the pelvis were obtained. The images were reviewed on a PACS workstation. COMPARISON: Obstetrical ultrasound from 10/14/2016 FINDINGS: The cervix is not well visualized. There is a single viable intrauterine gestation. Cardiac activity is present with 141 beats per minute. There is a breech presentation. The placenta is anterior. There is no evidence for an abruption or placenta previa. There is a subjectively normal amount of amniotic fluid. Measurements were made in order to determine age. The results are as follows (cm): BPD =6.55 HC =23.99 AC =22.62 FL =4.64 Estimated gestational age by ultrasound of approximately 26 weeks, 2 days. The estimated date of delivery by ultrasound is 01/29/2017. Estimated gestational age by LMP of approximately 26 weeks, 6 days. The estimated date of delivery by LMP is 01/25/2017. EFW = 922 grams (19th percentile) IMPRESSION: Single viable intrauterine gestation of approximately 26 weeks, 2 days . The estimated date of delivery is 01/29/2017 . Dating by ultrasound is within 4 days of dating by LMP. Breech presentation. Estimated weight is in the 19th percentile. RPTAT: EE Physician [place] Date Time Electronically viewed and signed by Physician Chayito on 10/25/2016 07:55 NARINDER
--- NOTE | 2016-10-25 08:00 | QN ---
Documentation Comment 25+wks GA in labor,on Mg ,Progressed to 5/-1 .Previous c/ section.developed herpetic -like lesions at the the right thigh. Prenatalogist, is not available on the phone for consult. The decision is made to prepare the patient for a repeat c/section.The plan discussed in details and through a retail worker(serbian speaking [employer] )with her and her .They understood concepts and agreed to plan , The above decision discussed with charged Nurse and related Nurse. ANNE VILLEGAS M.D. Oct 25, 2016 08:00
[2016-10-25] MEDS ORDERED: CITRIC ACID/NA CITRATE 30 ML CUP ONE (08:06)
[2016-10-25] MEDS ORDERED: CEFAZOLIN 2 GM/50 ML (PMX) 50 ML IVPB ONE ×2 (08:06→08:30)
[2016-10-25] MEDS ORDERED: METOCLOPRAMIDE 10 MG INJ ONE (08:07)
[2016-10-25] MEDS ORDERED: FAMOTIDINE 20 MG INJ ONE (08:07)
[2016-10-25 08:10] LABS: BASOPHILS % 0.2 % (0.0-2.0); EOSINOPHILS % 0.1 % (0.0-7.0); HEMATOCRIT 33.5 % (37.0-47.0); HEMOGLOBIN 12.1 g/dl (12.0-16.0); LYMPHOCYTES # 1.1 10^3/ul (0.8-2.9); LYMPHOCYTES % 5.9 % (15.0-51.0); MEAN CORPUSCULAR HEMOGLOBIN 32.8 pg (29.0-33.0); MEAN CORPUSCULAR HGB CONC 36.1 g/dl (32.0-37.0); MEAN CORPUSCULAR VOLUME 90.8 fl (82.0-101.0); MEAN PLATELET VOLUME 9.8 fl (7.4-10.4); MONOCYTE # 1.2 10^3/ul (0.3-0.9); MONOCYTES % 6.3 % (0.0-11.0); NEUTROPHILS % 86.8 % (39.0-77.0); PLATELET COUNT 160 10^3/UL (140-415); RED BLOOD COUNT 3.69 10^6/ul (4.20-5.40); RED CELL DISTRIBUTION WIDTH 11.8 % (11.5-14.5); WHITE BLOOD COUNT 19.1 10^3/ul (4.8-10.8)
[2016-10-25] MEDS: LACTATED RINGER'S 1,000 ML IV SCH ×2 (08:17→17:24)
[2016-10-25] MEDS ORDERED: BETAMET NA PHOS/AC(6 MG/ML) 5ML INJ IM STA (08:19)
[2016-10-25] MEDS ORDERED: LACTATED RINGER'S 1,000 ML IV ONE (08:19)
--- NOTE | 2016-10-25 08:25 | QN ---
Documentation Comment ,perinatalogist returned the phone call.She recommeds Delivery and also a dose of Rescue Steroid, ANNE VILLEGAS M.D. Oct 25, 2016 08:25
[2016-10-25] MEDS ORDERED: CITRIC ACID/NA CITRATE 30 ML CUP PO ONE (08:30)
[2016-10-25] MEDS ORDERED: METOCLOPRAMIDE 10 MG INJ IV ONE (08:30)
[2016-10-25] MEDS ORDERED: FAMOTIDINE 20 MG INJ IV ONE (08:30)
[2016-10-25] MEDS ORDERED: BETAMET NA PHOS/AC(6 MG/ML) 5ML INJ IM ONE (08:30)
[2016-10-25 08:39] LABS: INR 0.94; PROTIME 12.6 Sec (12.2-14.2)
[2016-10-25 08:40] LABS: PARTIAL THROMBOPLASTIN TIME 33.2 Sec (25.0-35.0)
[2016-10-25] MEDS ORDERED: FENTAnyl 50 MCG/ML VIAL ONE (08:48)
[2016-10-25] MEDS ORDERED: morphine SULFATE/PF (10 MG/10 ML) INJ ONE (08:48)
[2016-10-25] MEDS ORDERED: OXYTOCIN 30 UNITS/LR 500 ML IV ONE ×2 (08:49→09:46)
[2016-10-25] MEDS: CALCIUM/VITAMIN D (250/125) TAB PO SCH (09:00)
[2016-10-25] MEDS: FOLIC ACID 0.4 MG TAB PO SCH (09:00)
[2016-10-25] MEDS: FERROUS SULFATE (EC) 325 MG TAB PO SCH (09:00)
[2016-10-25] MEDS: PRENATAL VITAMIN PO SCH (09:00)
[2016-10-25] MEDS ORDERED: PHENYLephrine (100 MCG/ML) 5ML SYG ONE (09:11)
[2016-10-25] MEDS ORDERED: ONDANSETRON 4 MG INJ ONE (09:29)
[2016-10-25] MEDS ORDERED: ONDANSETRON 4 MG INJ IV PRN ×2 (09:30→11:00)
[2016-10-25] MEDS ORDERED: MEPERIDINE 25 MG INJ IV PRN (09:30)
[2016-10-25] MEDS ORDERED: PROCHLORPERAZINE 10 MG INJ IV PRN (09:30)
[2016-10-25] MEDS ORDERED: FENTAnyl 50 MCG/ML VIAL IV PRN (09:30)
[2016-10-25] MEDS ORDERED: DIPHENHYDRAMINE 50 MG INJ IV PRN ×2 (09:30→11:00)
[2016-10-25] MEDS ORDERED: KETOROLAC 30 MG INJ IV PRN ×2 (09:30→11:00)
[2016-10-25] MEDS ORDERED: MIDAZOLAM 1 MG/ML 2 ML INJ ONE (09:31)
--- NOTE | 2016-10-25 10:10 | OPR ---
Date/Time of Note Date/Time of Note DATE: 10/25/16 TIME: 10:08 Operative Report Free Text/Dictation 26+wks GA Breach previous c/section PPROM labor suspected Herpetic lesion at thigh Preoperative Diagnosis 26+wks GA Breach previous c/section PPROM labor suspected Herpetic lesion at thigh Postoperative Diagnosis 26+wks GA Breach previous c/section PPROM labor suspected Herpetic lesion at thigh Operation/Procedure Performed Repeat c/section Surgeon: ANNE VILLEGAS M.D. assistant maintenance manager: KELSEY ZALDIVAR MD Anesthesia Type: spinal Estimated Blood Loss: other (600 cc) Transfusion Required: no Specimens placenta Grafts/Implants: none Complications: no ANNE VILLEGAS M.D. Oct 25, 2016 10:10
[2016-10-25] MEDS: HYDROmorphONE (0.2 MG/ML) 10ML SYG IV PRN ×4 (10:41→11:47)
[2016-10-25] MEDS ORDERED: ZOLPIDEM 5 MG TAB PO PRN (11:00)
[2016-10-25] MEDS ORDERED: HYDROmorphONE 1 MG/ML SYG IV PRN ×2 (11:00)
[2016-10-25] MEDS ORDERED: NALOXONE (0.4 MG/ML) INJ IV PRN (11:00)
[2016-10-25] MEDS ORDERED: OXYTOCIN 30 UNITS/LR 500 ML IV STA (11:24)
[2016-10-25 13:30] VITALS: BP 117/98; PULSE 98; RESP 18
[2016-10-25 14:00] VITALS: BP 101/74; PULSE 100; RESP 18
[2016-10-25] MEDS ORDERED: CARBOPROST 250 MCG INJ IM PRN (14:30)
[2016-10-25] MEDS ORDERED: MISOPROSTOL 200 MCG TAB PR PRN (14:30)
[2016-10-25] MEDS ORDERED: METHYLERGONOVINE 0.2 MG INJ IM PRN (14:30)
[2016-10-25] MEDS ORDERED: LANOLIN 7 GM TUBE TOP PRN (14:30)
[2016-10-25] MEDS ORDERED: OXYTOCIN 30 UNITS/LR 500 ML IV PRN (14:30)
[2016-10-25 16:00] VITALS: BP 112/73; PULSE 96; RESP 20
[2016-10-25 20:30] VITALS: BP 107/70; PULSE 94; RESP 19
[2016-10-25] MEDS: SENNA/DOCUSATE NA (8.6MG/50MG) TAB PO SCH (21:00)
[2016-10-26] MEDS: LACTATED RINGER'S 1,000 ML IV SCH (00:27)
[2016-10-26 04:10] VITALS: BP 98/68; PULSE 72; RESP 18
[2016-10-26 07:50] VITALS: BP 96/59; PULSE 77; RESP 19
[2016-10-26] MEDS: SENNA/DOCUSATE NA (8.6MG/50MG) TAB PO SCH ×2 (09:46→21:00)
[2016-10-26 10:28] LABS: BASOPHILS % 0.1 % (0.0-2.0); HEMATOCRIT 25.7 % (37.0-47.0); HEMOGLOBIN 8.9 g/dl (12.0-16.0); LYMPHOCYTES # 1.6 10^3/ul (0.8-2.9); LYMPHOCYTES % 7.5 % (15.0-51.0); MEAN CORPUSCULAR HEMOGLOBIN 31.8 pg (29.0-33.0); MEAN CORPUSCULAR HGB CONC 34.6 g/dl (32.0-37.0); MEAN CORPUSCULAR VOLUME 91.8 fl (82.0-101.0); MEAN PLATELET VOLUME 10.2 fl (7.4-10.4); MONOCYTE # 1.2 10^3/ul (0.3-0.9); MONOCYTES % 5.8 % (0.0-11.0); NEUTROPHILS % 85.6 % (39.0-77.0); PLATELET COUNT 167 10^3/UL (140-415); RED CELL DISTRIBUTION WIDTH 11.9 % (11.5-14.5); WHITE BLOOD COUNT 21.4 10^3/ul (4.8-10.8)
[2016-10-26 12:00] VITALS: BP 101/57; PULSE 93; RESP 19
[2016-10-26] MEDS: IBUPROFEN 600 MG TAB PO SCH ×2 (12:18→18:32)
[2016-10-26] MEDS: OXYCODONE/ACETAMINOPHEN (5/325) TAB PO PRN (16:07)
[2016-10-26 16:10] VITALS: BP 95/64; PULSE 79; RESP 18
[2016-10-26 20:26] VITALS: BP 98/54; PULSE 86; RESP 19
[2016-10-27] MEDS: IBUPROFEN 600 MG TAB PO SCH ×4 (00:25→18:26)
[2016-10-27] MEDS: LACTATED RINGER'S 1,000 ML IV SCH (01:24)
--- NOTE | 2016-10-27 03:53 | QN ---
Documentation Comment Late Entry Note: 10/26/16 POD#1 is stable afebrile No Vb +BM +voids Vs Stable Gen NAD Abd soft NT ND Incision ntact Genitalia No blood at perinium --->discharge plan tomorrow -->ambulation ANNE VILLEGAS M.D. Oct 27, 2016 03:53
--- NOTE | 2016-10-27 03:54 | DS ---
Date/Time of Note Date/Time of Note DATE: 10/27/16 TIME: 03:53 Discharge Summary Admission/Discharge Info Admit Date/Time Oct 08, 2016 at 01:41 Discharge Date/Time Patient Condition: Good Procedures Repeat c.section Hospital Course uneventful Home Meds Reported Medications Folic Acid (Folic Acid) 0.8 Mg Capsule, 0.8 MG PO DAILY, CAP 10/07/16 Calcium Carbonate (CALCIUM) 600 Mg Tablet, 600 MG PO DAILY, TAB 10/07/16 Ferrous Sulfate (Iron) 134 Mg Tablet, 134 MG PO DAILY, TAB 10/07/16 Multivit/Min/Fol Ac/Iron/Pren* ( S*) 1 Tab Tab, 1 TAB PO DAILY, TAB 10/07/16 Primary Care Provider Care Physician No Primary Pending Labs Laboratory Tests Test 10/26/16 10:10 White Blood Count 21.410^3/ul (4.8-10.8) Red Blood Count 2.8010^6/ul (4.20-5.40) Hemoglobin 8.9g/dl (12.0-16.0) Hematocrit 25.7% (37.0-47.0) Mean Corpuscular Volume 91.8fl (82.0-101.0) Mean Corpuscular Hemoglobin 31.8pg (29.0-33.0) Mean Corpuscular Hemoglobin Concent 34.6g/dl (32.0-37.0) Red Cell Distribution Width 11.9% (11.5-14.5) Platelet Count 96627^3/UL (140-415) Mean Platelet Volume 10.2fl (7.4-10.4) Neutrophils % 85.6% (39.0-77.0) Lymphocytes % 7.5% (15.0-51.0) Monocytes % 5.8% (0.0-11.0) Eosinophils % 0.0% (0.0-7.0) Basophils % 0.1% (0.0-2.0) Nucleated Red Blood Cells % 0.0/100WBC (0.0-0.0) Neutrophils # (Manual) 18.310^3/ul (1.7-7.5) Lymphocytes # 1.610^3/ul (0.8-2.9) Monocytes # 1.210^3/ul (0.3-0.9) Eosinophils # 0.010^3/ul (0.0-0.5) Basophils # 0.010^3/ul (0.0-0.1) Nucleated Red Blood Cells # 0.010^3/ul (0.0-0.0) ANNE VILLEGAS M.D. Oct 27, 2016 03:54
[2016-10-27 08:10] VITALS: BP 96/59; PULSE 75; RESP 17
[2016-10-27] MEDS: SENNA/DOCUSATE NA (8.6MG/50MG) TAB PO SCH (08:58)
[2016-10-27] MEDS: OXYCODONE/ACETAMINOPHEN (5/325) TAB PO PRN ×2 (09:01→15:33)
[2016-10-27 13:05] LABS: HERPES SIMPLEX 1 DNA NOT DETECTED; HERPES SIMPLEX 2 DNA NOT DETECTED; HERPES SIMPLEX PCR SOURCE THIGH
[2016-10-27 15:30] VITALS: BP 100/72; PULSE 86; RESP 20
[2016-10-27 20:48] VITALS: BP 103/71; PULSE 82; RESP 19
[2016-10-28] MEDS: IBUPROFEN 600 MG TAB PO SCH ×4 (00:03→18:00)
[2016-10-28] MEDS: SENNA/DOCUSATE NA (8.6MG/50MG) TAB PO SCH ×2 (00:03→08:36)
[2016-10-28 04:15] VITALS: BP 97/63; PULSE 71; RESP 19
[2016-10-28] MEDS: OXYCODONE/ACETAMINOPHEN (5/325) TAB PO PRN ×2 (08:37→16:09)
[2016-10-28 08:50] VITALS: BP 91/54; PULSE 81; RESP 16
[2016-10-28] MEDS ORDERED: DIPHTH/TET/ACEL PERTUSS (ADULT) 0.5 ML VIAL IM* ONE (09:00)
--- NOTE | 2016-10-28 16:32 | OPR ---
Operative Report Planned Procedure Free Text/Dictation 26+wks GA Breach previous c/section PPROM labor suspected Herpetic lesion at thigh Procedure date Oct 28, 2016 Procedure(s) Repeat c/section Performed by: ANNE VILLEGAS M.D. Assisting provider: KELSEY ZALDIVAR MD Anesthesia Type: spinal Procedure Description Under satisfactory [] anesthesia, the patient was prepped and draped and placed in a supine position, tilted to the left. Pfannenstiel incision was made, carried through the subcutaneous tissue. Bleeders brought under control with electrocautery. Fascia incised to the length of the incision. The uterine wall was attached to Fascia and the left Fundus was was attached to Abdominal muscle ,. Transverse incision was made in the lower segment of the uterus. Amniotic sac ruptured. [] amniotic fluid noted. [] Nasal oropharyngeal suction was performed. The baby was handed to the team for immediate attention. The placenta was delivered manually intact. Uterine cavity was cleaned with wet sponge and drainage established. Uterus closed in 2 layers using [] in continuous fashion. Peritoneal cavity irrigated with warm saline. Sponge, needle and instrument count reported to be correct. Abdominal peritoneum closed with [] continuously. Rectus muscle approximated with []. Fascia closed with [] , and skin closed with piyush. Estimated blood loss [600cc]mL. Urine bag contained []mL of urine Post-Procedure Findings: Live Baby [], Apgars [] and [], weight [], position [], [] presentation []cord. Complications: None Pt Condition post procedure: stable Disposition: PACU Physician Certification I, the undersigned physician, hereby certify that I have discussed the procedure described in this consent form with this patient (or the patient's legal sales representative [employer]), including: * The risk and benefits of the procedure; * Any adverse reactions that may reasonably be expected to occur; * Any alternative efficacious methods of treatment which may be medically viable ; * The potential problems that may occur during recuperation; * Potential for blood transfusion and associated risks/benefits; and * Any research or economic interest I may have regarding this treatment. I further certify that the patient/legally responsible person was encouraged to ask question and that all questions were answered. ANNE VILLEGAS M.D. Oct 28, 2016 16:32
== END 2016-10-28 18:28 | disposition home or self-care (01) | DRG 765 ==
LOC: OBT 22:07 → L-D 22:15 → OBT 10-08 01:40 → OBG 10-08 01:41 → L-D 10-25 04:47 → PP1 10-25 13:32
PROVIDERS: ADMIT Obstetrics & Gynecology; ATTEND Obstetrics & Gynecology
PROC: 10D00Z1 Extraction of Products of Conception, Low, Open Approach (ICD-10-PCS; principal; 2016-10-28)
DX: O9A.212 Injury, poisoning and certain other consequences of external causes complicating pregnancy, second trimester (principal); O26.872 Cervical shortening, second trimester; O98.52 Other viral diseases complicating childbirth; S39.91XA Unspecified injury of abdomen, initial encounter; Y04.0XXA Assault by unarmed brawl or fight, initial encounter; O60.12X0 Preterm labor second trimester with preterm delivery second trimester, not applicable or unspecified; B00.9 Herpesviral infection, unspecified; O32.1XX0 Maternal care for breech presentation, not applicable or unspecified; Z37.0 Single live birth; Z3A.24 24 weeks gestation of pregnancy
CPT/HCPCS: 76805; 76815; 76817; 80307; 81001; 81003; 83735; 84112; 85025; 85460; 85610; 85730; 86592; 86850; 86900; 86901; 87529; 90715; 99464; G0463; J0133; J0595; J0690; J0702; J1170; J1200; J1885; J2250; J2274; J2370; J2405; J2590; J2765; J3010; J3475; J7120